=== PATIENT | male | born 1970 | race Two or more races ===

== ENCOUNTER 2016-11-09 13:53 | Emergency (ER) | payer MEDICARE, MEDICAID ==
[~2016-11-09] VITALS: Ht 180.3 cm; Wt 117.9 kg
[2016-11-09] MEDS ORDERED: SODIUM CHLORIDE 0.9% 1,000 ML IV ONE ×2 (14:59)
[2016-11-09 15:47] LABS: Basophils # (auto) 0 uL; Basophils % (auto) 0.4 % (0.0-2.0); CONDITION AutoValidated; Eosinophils # (auto) 0.4 uL; Eosinophils % (auto) 4.1 % (0.0-7.0); Hematocrit 40.5 % (41.0-53.0); Lymphocytes # (auto) 2.5 uL; Lymphocytes % (auto) 27.5 % (10.0-50.0); Mean Corpuscular Hemoglobin 30.3 pg (28.0-32.0); Mean Corpuscular Hgb Conc. 34.5 g/dL (32.0-36.0); Mean Corpuscular Volume 87.8 fL (80.0-100.0); Mean Platelet Volume 6.3 fL (7.4-10.4); Monocytes # (auto) 0.5 uL; Monocytes % (auto) 5.7 % (0.0-12.0); Neutrophils # (auto) 5.7 uL; Neutrophils % (auto) 62.3 % (37.0-80.0); Platelet Count (auto) 519 10^3/uL (140-450); Red Cell Distribution Width 13.3 % (11.6-16.0); White Blood Cell 9.1 10^3/uL (4.4-10.8)
[2016-11-09 16:02] LABS: Albumin 3.3 g/dL (3.4-5.0); Alkaline Phosphatase 138 U/L (45-117); Anion Gap 8 (5-15); Aspartate Aminotransferase 22 U/L (15-37); BUN/Creatinine Ratio 18.9; Bilirubin, Total 0.3 mg/dL (0.2-1.0); Blood Urea Nitrogen 17 mg/dL (7-18); Calcium 8.4 mg/dL (8.5-10.1); Carbon Dioxide 25 mmol/L (21-32); Chloride 104 mmol/L (98-107); GFR African American 117 mL/min; GFR Non-African American 97 mL/min; Glucose 197 mg/dL (74-106); Magnesium 2.1 mg/dL (1.6-2.6); Potassium 4.2 mmol/L (3.5-5.1); Sodium 137 mmol/L (136-145)
[2016-11-09 16:26] LABS: Urine Bilirubin Negative (Negative); Urine Blood Negative /uL (Negative); Urine Color Yellow (Yellow); Urine Glucose Normal (Normal); Urine Ketone Negative (Negative); Urine Mucus FEW (None Seen); Urine Nitrite Negative (Negative); Urine RBC 1 /hpf (0 - 3); Urine Squamous Epithelial Cell FEW /hpf (<5); Urine Urobilinogen Normal (Negative)
[2016-11-09 18:11] VITALS: BP 214/132
== END 2016-11-09 18:24 | disposition left against medical advice (07) ==
LOC: EDAGE 13:53 → EDUNIT# 13:53 → ER 14:00
DX: G45.9 Transient cerebral ischemic attack, unspecified (principal); E11.9 Type 2 diabetes mellitus without complications; I10 Essential (primary) hypertension; F17.210 Nicotine dependence, cigarettes, uncomplicated; Z53.29 Procedure and treatment not carried out because of patient's decision for other reasons
CPT/HCPCS: 36415; 70450; 71010; 80053; 80307; 80320; 81001; 83735; 84484; 85025; 93005; 96360; 99285; J7030

== ENCOUNTER → 2017-08-25 | Outpatient (CLI) | payer MEDICARE, MEDICAID ==
[2017-08-25 14:25] VITALS: BP 145/83
[2017-08-25 15:00] VITALS: BP 144/80
[2017-08-25 15:43] LABS: Albumin 3.7 g/dL (3.4-5.0); BUN/Creatinine Ratio 13.3; Calcium 8.7 mg/dL (8.5-10.1); Magnesium 1.9 mg/dL (1.6-2.6)
[2017-08-25 15:46] LABS: Bilirubin, Total 0.6 mg/dL (0.2-1.0); Total Protein 7.9 g/dL (6.4-8.2)
[2017-08-25 15:50] LABS: Basophils # (auto) 0.1 uL; Basophils % (auto) 0.5 % (0.0-2.0); Eosinophils # (auto) 0.3 uL; Monocytes # (auto) 0.6 uL; Red Cell Distribution Width 13.2 % (11.8-14.3)
[2017-08-25 15:56] LABS: Eosinophils % (auto) 3.2 % (0.0-7.0); Lymphocytes # (auto) 3.2 uL; Lymphocytes % (auto) 29.8 % (10.0-50.0); Mean Corpuscular Hemoglobin 30.3 pg (28.0-32.0); Mean Corpuscular Hgb Conc. 35.2 g/dL (32.0-36.0); Mean Corpuscular Volume 85.9 fL (80.0-100.0); Monocytes % (auto) 5.5 % (0.0-12.0); Neutrophils # (auto) 6.6 uL; Nucleated Red Blood Cells % 0.7 %; Platelet Count (auto) 300 10^3/uL (140-450); Red Blood Cells 5.94 10^6/uL (4.5-5.90); White Blood Cell 10.8 10^3/uL (4.4-10.8)
[2017-08-25 16:06] LABS: INR 0.97 (0.9-1.15); Partial Thromboplastin Time 25.9 sec (22.64-33.71); Prothrombin Time 10.6 sec (9.37-12.3)
== END | disposition home or self-care (01) ==
LOC: CHF HDHVI 14:30
PROVIDERS: ATTEND Internal Medicine Cardiovascular Disease
DX: E11.40 Type 2 diabetes mellitus with diabetic neuropathy, unspecified (principal); I10 Essential (primary) hypertension; R79.1 Abnormal coagulation profile; D64.9 Anemia, unspecified; R79.89 Other specified abnormal findings of blood chemistry
CPT/HCPCS: 36415; 80053; 82306; 83036; 83735; 85025; 85610; 85730; G0463

== ENCOUNTER → 2017-09-05 | Outpatient (CLI) | payer MEDICARE, MEDICAID | END | disposition home or self-care (01) | LOC: Rad HDHVI 14:35 | PROVIDERS: ATTEND Internal Medicine Cardiovascular Disease | DX: I10 Essential (primary) hypertension (principal); E11.40 Type 2 diabetes mellitus with diabetic neuropathy, unspecified; F17.200 Nicotine dependence, unspecified, uncomplicated | CPT/HCPCS: 93306 ==

== ENCOUNTER → 2018-08-17 | Outpatient (CLI) | payer MEDICARE, MEDICAID | END | disposition home or self-care (01) | LOC: Rad HDHVI 12:51 | PROVIDERS: ATTEND Internal Medicine Cardiovascular Disease | DX: R07.89 Other chest pain (principal); I10 Essential (primary) hypertension | CPT/HCPCS: 93306 ==

== ENCOUNTER → 2018-09-09 | Outpatient (CLI) | payer MEDICARE, MEDICAID ==
[~2018-09-09] VITALS: Ht 175.3 cm; Wt 112.0 kg
[~2018-09-09] MED LIST: ADENOSINE 90 MG/30 ML INJ IV ONE; ADENOSINE 94 MG in GIVE UN-DILUTED 0 ML IV ONE
[2018-09-09 12:09] LABS: Urine Blood Negative /uL (Negative); Urine Specific Gravity 1.038 (1.001-1.035)
[2018-09-09 12:13] LABS: Basophils # (auto) 0.1 uL; Basophils % (auto) 0.6 % (0.0-2.0); Eosinophils # (auto) 0.3 uL; Eosinophils % (auto) 3.7 % (0.0-7.0); Hematocrit 50.4 % (41.0-53.0); Hemoglobin 16.7 g/dL (13.5-17.5); Lymphocytes # (auto) 1.9 uL; Lymphocytes % (auto) 21.3 % (10.0-50.0); Mean Corpuscular Hemoglobin 30.1 pg (28.0-32.0); Mean Corpuscular Hgb Conc. 33.1 g/dL (32.0-36.0); Mean Corpuscular Volume 90.7 fL (80.0-100.0); Monocytes # (auto) 0.6 uL; Monocytes % (auto) 7.3 % (0.0-12.0); Neutrophils # (auto) 5.9 uL; Neutrophils % (auto) 67.1 % (37.0-80.0); Nucleated Red Blood Cells % 0.4 %; Platelet Count (auto) 272 10^3/uL (140-450); Red Blood Cells 5.56 10^6/uL (4.5-5.90); Red Cell Distribution Width 13.2 % (11.8-14.3); White Blood Cell 8.8 10^3/uL (4.4-10.8)
[2018-09-09 12:44] LABS: Calcium 9.1 mg/dL (8.5-10.1)
[2018-09-09 12:50] LABS: BUN/Creatinine Ratio 16.9; Bilirubin, Total 0.6 mg/dL (0.2-1.0)
[2018-09-09 12:53] LABS: Free T4 (Free Thyroxine) 1.33 ng/dL (0.89-1.76); Prostate Specific Antigen 0.28 ng/mL (0.0-4.0)
[2018-09-09 13:54] LABS: Potassium 4.2 mmol/L (3.5-5.1)
== END | disposition home or self-care (01) ==
LOC: Rad HDHVI 08:15
PROVIDERS: ATTEND Internal Medicine Cardiovascular Disease
DX: E11.65 Type 2 diabetes mellitus with hyperglycemia (principal); E03.9 Hypothyroidism, unspecified; E55.9 Vitamin D deficiency, unspecified; C61 Malignant neoplasm of prostate; D51.9 Vitamin B12 deficiency anemia, unspecified; N39.0 Urinary tract infection, site not specified; R82.79 Other abnormal findings on microbiological examination of urine; E78.5 Hyperlipidemia, unspecified; E11.40 Type 2 diabetes mellitus with diabetic neuropathy, unspecified; E78.00 Pure hypercholesterolemia, unspecified; I10 Essential (primary) hypertension
CPT/HCPCS: 36415; 78452; 80053; 80061; 81003; 82306; 82607; 83036; 84153; 84403; 84439; 84443; 85025; 93005; 96374; 96375; A9500; J0153

== ENCOUNTER → 2019-07-30 | Outpatient (CLI) | payer MEDICARE, MEDICAID ==
[2019-07-30 11:48] LABS: Basophils # (auto) 0.1 10 ^3/uL (0-0.2); Basophils % (auto) 0.7 % (0.0-2.0); Eosinophils # (auto) 0.2 10 ^3/uL (0-0.8); Eosinophils % (auto) 2.9 % (0.0-7.0); Hemoglobin 16.3 g/dL (13.5-17.5); Lymphocytes % (auto) 26.8 % (10.0-50.0); Mean Corpuscular Hemoglobin 31.1 pg (28.0-32.0); Mean Corpuscular Hgb Conc. 34.7 g/dL (32.0-36.0); Mean Corpuscular Volume 89.7 fL (80.0-100.0); Monocytes # (auto) 0.5 10 ^3/uL (0-1.3); Monocytes % (auto) 6.9 % (0.0-12.0); Neutrophils # (auto) 4.7 10 ^3/uL (1.6-8.6); Neutrophils % (auto) 62.7 % (37.0-80.0); Nucleated Red Blood Cells % 0.1 %; Platelet Count (auto) 255 10^3/uL (140-450); Red Blood Cells 5.24 10^6/uL (4.5-5.90); Red Cell Distribution Width 13.2 % (11.8-14.3); White Blood Cell 7.5 10^3/uL (4.4-10.8)
[2019-07-30 11:51] LABS: Urine Blood Negative /uL (Negative); Urine Specific Gravity 1.035 (1.001-1.035)
[2019-07-30 12:02] LABS: Albumin 3.7 g/dL (3.4-5.0); Potassium 4.8 mmol/L (3.5-5.1)
[2019-07-30 12:07] LABS: BUN/Creatinine Ratio 22.2; Bilirubin, Total 0.6 mg/dL (0.2-1.0); Free T4 (Free Thyroxine) 1.07 ng/dL (0.89-1.76); Prostate Specific Antigen 0.85 ng/mL (0.0-4.0)
== END | disposition home or self-care (01) ==
LOC: LAB 08:02
PROVIDERS: ATTEND Internal Medicine Cardiovascular Disease
DX: C61 Malignant neoplasm of prostate (principal); E03.9 Hypothyroidism, unspecified; K90.9 Intestinal malabsorption, unspecified; E29.1 Testicular hypofunction; N39.0 Urinary tract infection, site not specified; D51.9 Vitamin B12 deficiency anemia, unspecified; Z79.899 Other long term (current) drug therapy
CPT/HCPCS: 36415; 80053; 80061; 81003; 82306; 82607; 83036; 84153; 84403; 84439; 84443; 85025

== ENCOUNTER → 2019-09-06 | Emergency (ER) | payer MEDICARE, MEDICAID ==
[~2019-09-06] VITALS: Ht 175.3 cm; Wt 117.0 kg
[2019-09-06 21:22] LABS: Basophils # (auto) 0.1 10 ^3/uL (0-0.2); Basophils % (auto) 0.7 % (0.0-2.0); Eosinophils # (auto) 0.4 10 ^3/uL (0-0.8); Eosinophils % (auto) 3.5 % (0.0-7.0); Hematocrit 49.9 % (41.0-53.0); Hemoglobin 17.3 g/dL (13.5-17.5); Lymphocytes # (auto) 3.3 10 ^3/uL (0.4-5.4); Lymphocytes % (auto) 32.9 % (10.0-50.0); Mean Corpuscular Hemoglobin 31.1 pg (28.0-32.0); Mean Corpuscular Hgb Conc. 34.7 g/dL (32.0-36.0); Mean Corpuscular Volume 89.4 fL (80.0-100.0); Monocytes # (auto) 0.9 10 ^3/uL (0-1.3); Monocytes % (auto) 8.5 % (0.0-12.0); Neutrophils # (auto) 5.5 10 ^3/uL (1.6-8.6); Neutrophils % (auto) 54.4 % (37.0-80.0); Nucleated Red Blood Cells % 0.1 %; Platelet Count (auto) 262 10^3/uL (140-450); Red Blood Cells 5.58 10^6/uL (4.5-5.90); Red Cell Distribution Width 13.3 % (11.8-14.3); White Blood Cell 10.2 10^3/uL (4.4-10.8)
[2019-09-06 21:30] LABS: Alanine Aminotransferase 29 U/L (16-61); Albumin 4.1 g/dL (3.4-5.0); Anion Gap 8 (5-15); Aspartate Aminotransferase 17 U/L (15-37); BUN/Creatinine Ratio 18.8; Blood Urea Nitrogen 16 mg/dL (7-18); Calcium 9.3 mg/dL (8.5-10.1); Carbon Dioxide 24 mmol/L (21-32); Chloride 104 mmol/L (98-107); GFR African American 124 mL/min; GFR Non-African American 102 mL/min; Glucose 193 mg/dL (74-106); Magnesium 2.3 mg/dL (1.6-2.6); Potassium 4.4 mmol/L (3.5-5.1); Sodium 136 mmol/L (136-145)
[2019-09-06 21:37] LABS: Alkaline Phosphatase 130 U/L (45-117); Bilirubin, Total 0.5 mg/dL (0.2-1.0); Total Protein 7.9 g/dL (6.4-8.2)
[2019-09-06 22:00] VITALS: BP 142/96
== END | disposition home or self-care (01) ==
LOC: ER 20:28
DX: J11.1 Influenza due to unidentified influenza virus with other respiratory manifestations (principal); E11.9 Type 2 diabetes mellitus without complications; E78.5 Hyperlipidemia, unspecified; I10 Essential (primary) hypertension; F17.210 Nicotine dependence, cigarettes, uncomplicated
CPT/HCPCS: 36415; 71045; 80053; 82728; 83735; 83880; 84443; 84484; 85025; 85379; 85610; 85730; 87070; 87804; 87880; 93005

== ENCOUNTER → 2019-09-20 | Outpatient (CLI) | payer MEDICARE, MEDICAID ==
[~2019-09-20] MED LIST changes: -ADENOSINE 90 MG/30 ML INJ IV ONE; -ADENOSINE 94 MG in GIVE UN-DILUTED 0 ML IV ONE; +CHOL20007 PO; +DAPA1TAB4 PO; +INSU1.2I SC; +LISI-711 PO; +METF-370 PO; +NIC21P TOP; +PAR20T PO; +PREG50CA PO; +PROP20TA73 PO
[2019-09-20 09:10] VITALS: BP 120/80
--- NOTE | 2019-09-20 09:10 | NUR ---
Patient in for scheduled preop appt after lab draw and cxray.
[2019-09-20 09:35] VITALS: BP 125/78
--- NOTE | 2019-09-20 09:35 | NUR ---
Pre-Op Discharge Summary: See e-MAR for any medications given for this visit. Pre-op orders received and carried out per MD of EKG, LABS and chest xrays. EKG faxed to [facility] and patient has instructions for tele health appt to completed preop admission.
[2019-09-20 12:29] LABS: BUN/Creatinine Ratio 14.3; Calcium 8.8 mg/dL (8.5-10.1); Potassium 4.4 mmol/L (3.5-5.1)
[2019-09-20 12:38] LABS: Basophils # (auto) 0.1 10 ^3/uL (0-0.2); Basophils % (auto) 0.7 % (0.0-2.0); Eosinophils # (auto) 0.3 10 ^3/uL (0-0.8); Eosinophils % (auto) 2.8 % (0.0-7.0); Hematocrit 50.4 % (41.0-53.0); Hemoglobin 17.2 g/dL (13.5-17.5); Lymphocytes % (auto) 20.9 % (10.0-50.0); Mean Corpuscular Hemoglobin 30.7 pg (28.0-32.0); Mean Corpuscular Hgb Conc. 34.1 g/dL (32.0-36.0); Monocytes # (auto) 0.6 10 ^3/uL (0-1.3); Monocytes % (auto) 6.6 % (0.0-12.0); Neutrophils # (auto) 6.7 10 ^3/uL (1.6-8.6); Nucleated Red Blood Cells % 0.2 %; Platelet Count (auto) 264 10^3/uL (140-450); Red Cell Distribution Width 13.5 % (11.8-14.3); White Blood Cell 9.7 10^3/uL (4.4-10.8)
[2019-09-20 12:39] LABS: INR 0.98 (0.9-1.15); Partial Thromboplastin Time 27.6 sec (23.64-32.05)
== END | disposition home or self-care (01) ==
LOC: Rad HDHVI 08:46
PROVIDERS: ATTEND Internal Medicine Cardiovascular Disease
DX: Z01.812 Encounter for preprocedural laboratory examination (principal); R06.02 Shortness of breath; I20.9 Angina pectoris, unspecified; E11.9 Type 2 diabetes mellitus without complications; M47.814 Spondylosis without myelopathy or radiculopathy, thoracic region
CPT/HCPCS: 36415; 71046; 80048; 85025; 85610; 85730; 93005; G0463

== ENCOUNTER 2019-09-23 07:46 | Day surgery (SDC) | payer BC, MEDICARE, MEDICAID ==
[~2019-09-23] VITALS: Ht 175.3 cm; Wt 113.9 kg
[2019-09-23] MEDS ORDERED: LIDOCAINE 2%HCL (LOCAL ANESTH.) INJ 20ML MDV ONE (08:09)
[2019-09-23] MEDS ORDERED: IOHEXOL 350 MG/ML 100ML IJ ONE ×2 (08:09→09:35)
[2019-09-23] MEDS ORDERED: ANGIOMAX 250 MG VIAL IV ONE (08:24)
[2019-09-23] MEDS ORDERED: MIDAZOLAM HCL 1MG/1ML-2 ML VIAL ONE (08:24)
[2019-09-23] MEDS ORDERED: fentaNYL CITRATE 100 MCG/2 ML VL ONE (08:24)
[2019-09-23] MEDS ORDERED: SODIUM CHL 0.9% 0 ML ONE (08:25)
[2019-09-23] MEDS ORDERED: SODIUM CHL 0.9% 500 ML IV ONE (11:00)
[2019-09-23] MEDS ORDERED: ACETAMINOPHEN 500 MG TAB PO PRN (11:00)
[2019-09-23] MEDS ORDERED: ONDANSETRON HCL 4 MG/2 ML VIAL IV PRN (11:00)
[2019-09-23] MEDS ORDERED: HYDROcodone-ACET 5/325MG TAB PO PRN (11:00)
== END 2019-09-23 12:49 | disposition home or self-care (01) ==
LOC: CATH 07:46
PROVIDERS: ATTEND Internal Medicine Cardiovascular Disease
DX: R07.9 Chest pain, unspecified (principal); I25.10 Atherosclerotic heart disease of native coronary artery without angina pectoris; Z98.890 Other specified postprocedural states
CPT/HCPCS: 93458; C1760; C1894; J1644; J2250; J3010; J7030; Q9967; 99152

== ENCOUNTER → 2019-12-07 | Outpatient (CLI) | payer MEDICARE, BC, MEDICAID ==
[2019-12-07 12:10] LABS: Basophils # (auto) 0.1 10 ^3/uL (0-0.2); Eosinophils # (auto) 0.2 10 ^3/uL (0-0.8); Hemoglobin 18.3 g/dL (13.5-17.5); Lymphocytes # (auto) 1.8 10 ^3/uL (0.4-5.4); White Blood Cell 8.1 10^3/uL (4.4-10.8)
[2019-12-07 12:13] LABS: Basophils % (auto) 0.8 % (0.0-2.0); Eosinophils % (auto) 2.9 % (0.0-7.0); Hematocrit 54.4 % (41.0-53.0); Lymphocytes % (auto) 22.1 % (10.0-50.0); Mean Corpuscular Hgb Conc. 33.7 g/dL (32.0-36.0); Mean Corpuscular Volume 89.1 fL (80.0-100.0); Monocytes # (auto) 0.5 10 ^3/uL (0-1.3); Monocytes % (auto) 6.6 % (0.0-12.0); Neutrophils # (auto) 5.5 10 ^3/uL (1.6-8.6); Neutrophils % (auto) 67.6 % (37.0-80.0); Platelet Count (auto) 260 10^3/uL (140-450); Red Blood Cells 6.11 10^6/uL (4.5-5.90); Urine Blood Negative /uL (Negative); Urine Specific Gravity 1.042 (1.001-1.035)
[2019-12-07 12:21] LABS: Albumin 4.1 g/dL (3.4-5.0); Potassium 4.2 mmol/L (3.5-5.1)
[2019-12-07 12:23] LABS: INR 1.01 (0.9-1.15); Partial Thromboplastin Time 27.9 sec (23.64-32.05)
[2019-12-07 12:25] LABS: BUN/Creatinine Ratio 16.3; Bilirubin, Total 0.5 mg/dL (0.2-1.0); Total Protein 8.2 g/dL (6.4-8.2)
== END | disposition home or self-care (01) ==
LOC: Rad HDHVI 10:28
PROVIDERS: ATTEND Internal Medicine Cardiovascular Disease
DX: Z01.812 Encounter for preprocedural laboratory examination (principal); M75.42 Impingement syndrome of left shoulder
CPT/HCPCS: 36415; 71046; 80053; 81003; 85025; 85610; 85730

== ENCOUNTER → 2020-09-28 | Outpatient (CLI) | payer MEDICARE, BC ==
[2020-09-28 10:30] LABS: Albumin 3.7 g/dL (3.4-5.0); Calcium 9.1 mg/dL (8.5-10.1); Potassium 4.6 mmol/L (3.5-5.1)
[2020-09-28 10:31] LABS: Basophils # (auto) 0.1 10 ^3/uL (0-0.2); Basophils % (auto) 0.7 % (0.0-2.0); Eosinophils # (auto) 0.2 10 ^3/uL (0-0.8); Eosinophils % (auto) 1.9 % (0.0-7.0); Hematocrit 50.3 % (41.0-53.0); Hemoglobin 17.3 g/dL (13.5-17.5); Lymphocytes # (auto) 2.4 10 ^3/uL (0.4-5.4); Lymphocytes % (auto) 26.2 % (10.0-50.0); Mean Corpuscular Hemoglobin 31.3 pg (28.0-32.0); Mean Corpuscular Hgb Conc. 34.3 g/dL (32.0-36.0); Mean Corpuscular Volume 91.3 fL (80.0-100.0); Monocytes # (auto) 0.6 10 ^3/uL (0-1.3); Monocytes % (auto) 6.9 % (0.0-12.0); Neutrophils % (auto) 64.3 % (37.0-80.0); Nucleated Red Blood Cells % 0.2 %; Platelet Count (auto) 255 10^3/uL (140-450); Red Blood Cells 5.52 10^6/uL (4.5-5.90); Red Cell Distribution Width 13.5 % (11.8-14.3); White Blood Cell 9.3 10^3/uL (4.4-10.8)
[2020-09-28 10:36] LABS: BUN/Creatinine Ratio 21.8; Bilirubin, Total 0.6 mg/dL (0.2-1.0); Total Protein 7.6 g/dL (6.4-8.2)
== END | disposition home or self-care (01) ==
LOC: LAB 09:35
PROVIDERS: ATTEND Physician Assistant
DX: E11.22 Type 2 diabetes mellitus with diabetic chronic kidney disease (principal); N18.9 Chronic kidney disease, unspecified; E11.39 Type 2 diabetes mellitus with other diabetic ophthalmic complication; E66.01 Morbid (severe) obesity due to excess calories; R35.1 Nocturia
CPT/HCPCS: 36415; 80053; 80061; 82043; 83036; 84153; 85025

== ENCOUNTER 2021-08-23 13:09 | Emergency (ER) | payer BC, MEDICARE ==
[~2021-08-23] VITALS: Ht 175.3 cm; Wt 117.9 kg
[2021-08-23 14:11] LABS: Urine Bacteria NONE SEEN /hpf (None Seen); Urine Blood TRACE /uL (Negative); Urine Specific Gravity 1.025 (1.001-1.035); Urine WBC 1 /hpf (0 - 3)
[2021-08-23 14:23] LABS: Eosinophils # (auto) 0.2 10 ^3/uL (0-0.8); White Blood Cell 11.6 10^3/uL (4.4-10.8)
[2021-08-23 14:26] LABS: Basophils # (auto) 0.1 10 ^3/uL (0-0.2); Basophils % (auto) 1.1 % (0.0-2.0); Hematocrit 49.8 % (41.0-53.0); Hemoglobin 17.7 g/dL (13.5-17.5); Mean Corpuscular Hgb Conc. 35.5 g/dL (32.0-36.0); Mean Corpuscular Volume 87.5 fL (80.0-100.0); Monocytes # (auto) 0.7 10 ^3/uL (0-1.3); Monocytes % (auto) 6.1 % (0.0-12.0); Neutrophils # (auto) 7.5 10 ^3/uL (1.6-8.6); Neutrophils % (auto) 64.8 % (37.0-80.0); Nucleated Red Blood Cells % 1.9 %; Red Blood Cells 5.69 10^6/uL (4.5-5.90); Red Cell Distribution Width 13.5 % (11.8-14.3)
[2021-08-23 15:00] LABS: Calcium 8.9 mg/dL (8.5-10.1)
[2021-08-23 15:03] LABS: BUN/Creatinine Ratio 17.4
[2021-08-23 15:06] LABS: Bilirubin, Total 0.7 mg/dL (0.2-1.0); Total Protein 7.3 g/dL (6.4-8.2)
[2021-08-23] MEDS ORDERED: SODIUM CHLORIDE 0.9% 1,000 ML IV ONE ×2 (15:15)
[2021-08-23] MEDS ORDERED: KETOROLAC TROMETH 30 MG/ML 1ML VIAL IV ONE (16:00)
[2021-08-23] MEDS ORDERED: IBU600T PO (16:12)
[2021-08-23] MEDS ORDERED: LEVO-28 PO (16:12)
[2021-08-23] MEDS ORDERED: cefTRIAXone 1GM/50ML D5W 50 ML IV ONE (16:15)
[2021-08-23 16:18] VITALS: BP 108/60
== END 2021-08-23 16:20 | disposition home or self-care (01) ==
LOC: ER 13:09
DX: E86.0 Dehydration (principal); N20.0 Calculus of kidney; E11.65 Type 2 diabetes mellitus with hyperglycemia; I10 Essential (primary) hypertension; E78.5 Hyperlipidemia, unspecified; F17.210 Nicotine dependence, cigarettes, uncomplicated; Z79.899 Other long term (current) drug therapy
CPT/HCPCS: 36415; 74176; 80053; 81001; 85025

== ENCOUNTER → 2022-06-17 | Outpatient (CLI) | payer MEDICARE, BC ==
[~2022-06-17] MED LIST changes: +IBU600T PO; +LEVO-28 PO
[2022-06-17 10:15] LABS: Barbiturate Scree,Urine NEGATIVE (NEGATIVE); Cannabinoid Screen, Urine NEGATIVE (NEGATIVE)
[2022-06-17 10:20] LABS: Alcohol, Urine < 3.0 mg/dL (0-10); Amphetamine Screen, Urine NEGATIVE (NEGATIVE); Benzodiazephine Screen, Urine NEGATIVE (NEGATIVE); Cocaine Screen, Urine NEGATIVE (NEGATIVE); Opiate Scree,Urine NEGATIVE (NEGATIVE); Phencyclidine Screen, Urine NEGATIVE (NEGATIVE)
== END | disposition home or self-care (01) ==
LOC: LAB 08:50
PROVIDERS: ATTEND Internal Medicine
DX: M96.1 Postlaminectomy syndrome, not elsewhere classified (principal); G89.4 Chronic pain syndrome
CPT/HCPCS: 80307

== ENCOUNTER → 2022-08-26 | Outpatient (CLI) | payer BC, MEDICARE ==
[2022-08-26 11:57] LABS: Basophils # (auto) 0.1 10 ^3/uL (0-0.2); Basophils % (auto) 0.8 % (0.0-2.0); Eosinophils # (auto) 0.2 10 ^3/uL (0-0.8); Eosinophils % (auto) 2.2 % (0.0-7.0); Hematocrit 45.3 % (41.0-53.0); Hemoglobin 16.3 g/dL (13.5-17.5); Lymphocytes # (auto) 2.9 10 ^3/uL (0.4-5.4); Lymphocytes % (auto) 31.8 % (10.0-50.0); Mean Corpuscular Hemoglobin 31.4 pg (28.0-32.0); Mean Corpuscular Hgb Conc. 35.9 g/dL (32.0-36.0); Mean Corpuscular Volume 87.6 fL (80.0-100.0); Monocytes # (auto) 0.6 10 ^3/uL (0-1.3); Monocytes % (auto) 7.1 % (0.0-12.0); Neutrophils # (auto) 5.3 10 ^3/uL (1.6-8.6); Neutrophils % (auto) 58.1 % (37.0-80.0); Nucleated Red Blood Cells % 0.2 %; Red Blood Cells 5.17 10^6/uL (4.5-5.90); Red Cell Distribution Width 14.1 % (11.8-14.3); White Blood Cell 9.1 10^3/uL (4.4-10.8)
[2022-08-26 12:24] LABS: Potassium 3.9 mmol/L (3.5-5.1)
[2022-08-26 12:33] LABS: Free T4 (Free Thyroxine) 0.96 ng/dL (0.89-1.76)
[2022-08-26 12:34] LABS: Albumin 3.6 g/dL (3.4-5.0); BUN/Creatinine Ratio 30.4 (10.0-20.0); Bilirubin, Total 0.8 mg/dL (0.2-1.0); Prostate Specific Antigen 0.29 ng/mL (0.0-4.0); Total Protein 7.1 g/dL (6.4-8.2)
== END | disposition home or self-care (01) ==
LOC: LAB 11:17
PROVIDERS: ATTEND Nurse Practitioner Family
DX: Z00.00 Encounter for general adult medical examination without abnormal findings (principal); E11.40 Type 2 diabetes mellitus with diabetic neuropathy, unspecified; R35.1 Nocturia; E66.01 Morbid (severe) obesity due to excess calories
CPT/HCPCS: 36415; 80053; 80061; 82043; 82306; 84153; 84439; 84443; 85025

== ENCOUNTER → 2022-09-27 | Outpatient (CLI) | payer BC, MEDICARE | END | disposition home or self-care (01) | LOC: LAB 15:13 | DX: Z00.00 Encounter for general adult medical examination without abnormal findings (principal); E11.40 Type 2 diabetes mellitus with diabetic neuropathy, unspecified; R35.1 Nocturia; E66.01 Morbid (severe) obesity due to excess calories | CPT/HCPCS: 82274 ==

== ENCOUNTER 2022-12-30 18:18 | Emergency (ER) | payer BC, MEDICARE, MEDICAID ==
[~2022-12-30] VITALS: Ht 177.8 cm; Wt 220.0 kg
[~2022-12-30 18:18] MED LIST changes: -LEVO-28 PO; +LEVO500T91 PO; +PROP1TAB53 PO; -PROP20TA73 PO
[2022-12-30] MEDS ORDERED: BUPIVACAINE 0.25% INJ 50ML VIAL IJ ONE (21:45)
[2022-12-30] MEDS ORDERED: MORPHINE SULFATE INJ 2 MG/ml SYRG IM ONE (21:45)
[2022-12-30] MEDS ORDERED: LIDOCAINE HCL (LOCAL ANESTH.) 0.5 % 50ML MDV IJ ONE (21:45)
[2022-12-30] MEDS ORDERED: BUPIVACAINE 0.25% INJ 50ML VIAL ID ONE (23:15)
[2022-12-30] MEDS ORDERED: LIDOCAINE 2%HCL (LOCAL ANESTH.) INJ 10ml MDV IJ ONE (23:30)
[2022-12-31] MEDS ORDERED: HYDR-4902 PO (00:34)
[2022-12-31 01:42] VITALS: BP 126/75; PULSE 81; RESP 19; TEMP 98; O2SAT 99
== END 2022-12-31 07:32 | disposition home or self-care (01) ==
LOC: EDBD 18:18 → EDUNIT# 18:18 → ER 18:18
DX: S52.522A Torus fracture of lower end of left radius, initial encounter for closed fracture (principal); S52.612A Displaced fracture of left ulna styloid process, initial encounter for closed fracture; S13.8XXA Sprain of joints and ligaments of other parts of neck, initial encounter; S09.8XXA Other specified injuries of head, initial encounter; I10 Essential (primary) hypertension; E11.9 Type 2 diabetes mellitus without complications; E78.5 Hyperlipidemia, unspecified; F17.210 Nicotine dependence, cigarettes, uncomplicated; Z79.1 Long term (current) use of non-steroidal anti-inflammatories (NSAID); Z79.4 Long term (current) use of insulin; Z79.84 Long term (current) use of oral hypoglycemic drugs; Z79.899 Other long term (current) drug therapy; W18.39XA Other fall on same level, initial encounter; Y93.51 Activity, roller skating (inline) and skateboarding; Y92.89 Other specified places as the place of occurrence of the external cause; Y99.8 Other external cause status
CPT/HCPCS: 25605; 70450; 72125; 73100; 96372; 99285; J2001; J2270; J3490

== ENCOUNTER 2023-01-15 08:03 | Day surgery (SDC) | payer BC, MEDICARE, MEDICAID ==
[2023-01-14 09:04] LABS: Basophils # (auto) 0.1 10 ^3/uL (0-0.2); Basophils % (auto) 0.7 % (0.0-2.0); Eosinophils # (auto) 0.1 10 ^3/uL (0-0.8); Eosinophils % (auto) 1.4 % (0.0-7.0); Hematocrit 49.7 % (41.0-53.0); Hemoglobin 17.3 g/dL (13.5-17.5); Lymphocytes # (auto) 2.5 10 ^3/uL (0.4-5.4); Lymphocytes % (auto) 24.4 % (10.0-50.0); Mean Corpuscular Hemoglobin 31.6 pg (28.0-32.0); Mean Corpuscular Hgb Conc. 34.9 g/dL (32.0-36.0); Mean Corpuscular Volume 90.4 fL (80.0-100.0); Monocytes # (auto) 0.5 10 ^3/uL (0-1.3); Monocytes % (auto) 4.5 % (0.0-12.0); Nucleated Red Blood Cells % 0.1 %; Red Cell Distribution Width 13.7 % (11.8-14.3); White Blood Cell 10.1 10^3/uL (4.4-10.8)
[2023-01-14 09:24] LABS: INR 1.05 (0.9-1.15); Partial Thromboplastin Time 30.7 SEC (24.5-34.5)
[2023-01-14 09:55] LABS: Potassium 4.1 mmol/L (3.5-5.1)
[2023-01-14 10:04] LABS: Albumin 3.8 g/dL (3.4-5.0); BUN/Creatinine Ratio 23.4 (10.0-20.0); Bilirubin, Total 0.5 mg/dL (0.2-1.0); Calcium 8.7 mg/dL (8.7-10.4); Total Protein 7.2 g/dL (6.4-8.2)
[2023-01-14 11:10] LABS: Urine Bacteria NONE SEEN /hpf (None Seen); Urine Blood Negative /uL (Negative); Urine Clarity Clear (Clear); Urine Color Yellow (Yellow); Urine Protein, UAD TRACE (Negative); Urine Specific Gravity 1.037 (1.001-1.035); Urine Urobilinogen Normal (Negative); Urine WBC 1 /hpf (0 - 3)
[~2023-01-15] VITALS: Ht 175.3 cm; Wt 100.2 kg
[~2023-01-15 08:03] MED LIST changes: +CLON-1003 PO; +HYDR-4902 PO; -INSU1.2I SC; -LEVO500T91 PO; -METF-370 PO; -PAR20T PO; +PARO30TA99 PO; +ROSU1TAB12 PO; +TIRZ12.5 SC
[2023-01-15] MEDS ORDERED: ceFAZolin 1GM/50ML 100 ML IV ONE (08:11)
[2023-01-15] MEDS ORDERED: DexAMETHasone SOD PHOS 10MG/1ML VIAL INJ ONE (08:23)
[2023-01-15] MEDS ORDERED: PROPOFOL 10 MG/ML 20 ML IV ONE (08:23)
[2023-01-15] MEDS ORDERED: MEPERIDINE HCL (25 MG/ML) 1ML VIAL ONE (08:23)
[2023-01-15] MEDS ORDERED: MIDAZOLAM HCL 2MG/2ML 2ml VIAL (1mg/ml) ONE (08:23)
[2023-01-15] MEDS ORDERED: fentaNYL CITRATE 100 MCG/2 ML VL ONE (08:23)
[2023-01-15] MEDS ORDERED: ONDANSETRON HCL 4 MG/2 ML VIAL ONE (08:23)
[2023-01-15] MEDS ORDERED: SODIUM CHLORIDE LOCK 10 ML ONE (08:23)
[2023-01-15 09:42] VITALS: RESP 13; TEMP 97.6; O2SAT 94
[2023-01-15] MEDS ORDERED: METOCLOPRAMIDE HCL 5MG/ml INJ 2ml VIAL IV PRN (10:00)
[2023-01-15] MEDS ORDERED: ACCU-CHEK COMFORT CURVE STRIP VI ONE (10:00)
[2023-01-15] MEDS ORDERED: HYDROmorphone HCL 2 MG/ML VL/or syr IV PRN (10:00)
[2023-01-15] MEDS: HYDROmorphone HCL 2 MG/ML VL/or syr IV PRN ×4 (10:04→10:58)
[2023-01-15] MEDS ORDERED: CEPH250C PO (10:10)
[2023-01-15] MEDS: MORPHINE SULFATE INJ 2 MG/ml SYRG IV PRN ×2 (10:13→10:44)
[2023-01-15 11:25] VITALS: BP 160/83; PULSE 97; RESP 18; O2SAT 95
== END 2023-01-15 11:32 | disposition home or self-care (01) ==
LOC: SUR 08:03
PROVIDERS: ATTEND Orthopaedic Surgery
DX: S52.592A Other fractures of lower end of left radius, initial encounter for closed fracture (principal); X58.XXXA Exposure to other specified factors, initial encounter; Y93.89 Activity, other specified; Y92.89 Other specified places as the place of occurrence of the external cause; Y99.8 Other external cause status; E11.9 Type 2 diabetes mellitus without complications
CPT/HCPCS: 25609; 36415; 73100; 76000; 80053; 81001; 82962; 85025; 85610; 85730; J0690; J1100; J1170; J2175; J2250; J2270; J2405; J2704; J3010

== ENCOUNTER → 2024-02-17 | Outpatient (CLI) | payer BC, MEDICAID ==
[~2024-02-17] MED LIST changes: +CEPH250C PO; +PARO-181 PO; -PARO30TA99 PO; -ROSU1TAB12 PO; +ROSU5TAB24 PO
[2024-02-17 10:57] LABS: Amphetamine Screen, Urine Neg (NEGATIVE); Barbiturate Scree,Urine Neg (NEGATIVE); Benzodiazephine Screen, Urine Neg (NEGATIVE)
[2024-02-17 10:58] LABS: Cannabinoid Screen, Urine Neg (NEGATIVE); Cocaine Screen, Urine Neg (NEGATIVE); Opiate Scree,Urine Pos (NEGATIVE); Phencyclidine Screen, Urine Neg (NEGATIVE)
[2024-02-17 11:07] LABS: Alanine Aminotransferase 24 U/L (7-40); Albumin 4.3 g/dL (3.2-4.8); Alkaline Phosphatase 90 U/L (46-116); Anion Gap 7 (5-15); Aspartate Aminotransferase 18 U/L (13-40); Bilirubin, Total 0.7 mg/dL (0.2-1.0); Blood Urea Nitrogen 14 mg/dL (9-23); Calcium 9.4 mg/dL (8.7-10.4); Carbon Dioxide 26 mmol/L (20-30); Chloride 104 mmol/L (98-107); Glucose 215 mg/dL (74-106); Potassium 4.2 mmol/L (3.5-5.1); Sodium 137 mmol/L (136-145); Total Protein 6.7 g/dL (5.7-8.2)
== END | disposition home or self-care (01) ==
LOC: LAB 09:44
PROVIDERS: ATTEND Internal Medicine
DX: G89.4 Chronic pain syndrome (principal)
CPT/HCPCS: 36415; 80053; 80307

== ENCOUNTER → 2024-08-16 | Outpatient (CLI) | payer BC ==
[2024-08-16 14:46] LABS: Urine Bacteria None Seen /hpf (None Seen)
[2024-08-16 15:00] LABS: Basophils # (auto) 0.1 10 ^3/uL (0-0.2); Basophils % (auto) 0.9 % (0.0-2.0); Eosinophils # (auto) 0.3 10 ^3/uL (0-0.8); Eosinophils % (auto) 3.7 % (0.0-7.0); Hematocrit 42.7 % (41.0-53.0); Hemoglobin 14.8 g/dL (13.5-17.5); Lymphocytes # (auto) 2.6 10 ^3/uL (0.4-5.4); Lymphocytes % (auto) 38.9 % (10.0-50.0); Mean Corpuscular Hemoglobin 31.2 pg (28.0-32.0); Mean Corpuscular Hgb Conc. 34.8 g/dL (32.0-36.0); Mean Corpuscular Volume 89.7 fL (80.0-100.0); Monocytes # (auto) 0.5 10 ^3/uL (0-1.3); Monocytes % (auto) 7.7 % (0.0-12.0); Neutrophils # (auto) 3.3 10 ^3/uL (1.6-8.6); Neutrophils % (auto) 48.8 % (37.0-80.0); Nucleated Red Blood Cells % 0.1 %; Platelet Count (auto) 231 10^3/uL (140-450); Red Blood Cells 4.76 10^6/uL (4.5-5.90); Red Cell Distribution Width 13.3 % (11.8-14.3); White Blood Cell 6.8 10^3/uL (4.4-10.8)
[2024-08-16 15:21] LABS: Urine Blood Negative /uL (Negative); Urine Budding Yeast OCCASIONAL /hpf (None Seen); Urine Clarity Clear (Clear); Urine Color Yellow (Yellow); Urine Protein, UAD Negative (Negative); Urine Specific Gravity 1.032 (1.001-1.035); Urine Squamous Epithelial Cell None Seen /hpf (<5); Urine Urobilinogen 2 mg/dL (Negative); Urine pH 6.5 (5.0-9.0)
[2024-08-16 15:45] LABS: Alanine Aminotransferase 27 U/L (7-40); Albumin 4.2 g/dL (3.2-4.8); Alkaline Phosphatase 83 U/L (46-116); Anion Gap 9 (5-15); Aspartate Aminotransferase 26 U/L (13-40); BUN/Creatinine Ratio 15.4 (10.0-20.0); Bilirubin, Total 0.7 mg/dL (0.2-1.0); Blood Urea Nitrogen 16 mg/dL (9-23); Calcium 9.7 mg/dL (8.7-10.4); Carbon Dioxide 29 mmol/L (20-31); Chloride 102 mmol/L (98-107); Cholesterol 104 mg/dL (< 200); Glucose 129 mg/dL (74-106); HDL Cholesterol 36 mg/dL (40-59); LDL Cholesterol 55 mg/dL (< 100); Potassium 3.8 mmol/L (3.5-5.1); Sodium 140 mmol/L (136-145); Total Protein 6.6 g/dL (5.7-8.2); Triglycerides 89 mg/dL (< 150)
[2024-08-16 16:06] LABS: Benzodiazephine Screen, Urine Neg (NEGATIVE); Creatinine, Urine 74.94 mg/dL (30.0-125.0)
[2024-08-16 16:07] LABS: Amphetamine Screen, Urine Neg (NEGATIVE); Barbiturate Scree,Urine Neg (NEGATIVE); Cannabinoid Screen, Urine Neg (NEGATIVE); Cocaine Screen, Urine Neg (NEGATIVE); Opiate Scree,Urine Pos (NEGATIVE); Phencyclidine Screen, Urine Neg (NEGATIVE)
[2024-08-16 16:12] LABS: Micro Albumin < 3.0 mg/L (<30.0)
== END | disposition home or self-care (01) ==
LOC: LAB 14:09
PROVIDERS: ATTEND Nurse Practitioner Family
DX: E11.22 Type 2 diabetes mellitus with diabetic chronic kidney disease (principal); N18.9 Chronic kidney disease, unspecified; R35.1 Nocturia; R79.89 Other specified abnormal findings of blood chemistry; Z00.01 Encounter for general adult medical examination with abnormal findings
CPT/HCPCS: 36415; 80053; 80061; 80307; 81001; 82043; 82306; 82570; 83036; 84153; 84443; 85025

== ENCOUNTER → 2025-05-12 | Outpatient (CLI) | payer BC ==
[2025-05-12 13:10] LABS: Alanine Aminotransferase 27 U/L (7-40); Albumin 4.3 g/dL (3.2-4.8); Alkaline Phosphatase 77 U/L (46-116); Anion Gap 7 (5-15); BUN/Creatinine Ratio 15.5 (10.0-20.0); Blood Urea Nitrogen 15 mg/dL (9-23); Calcium 9.3 mg/dL (8.7-10.4); Carbon Dioxide 27 mmol/L (20-31); Chloride 105 mmol/L (98-107); Sodium 139 mmol/L (136-145); Total Protein 7.2 g/dL (5.7-8.2)
[2025-05-12 13:11] LABS: Bilirubin, Total 0.8 mg/dL (0.2-1.0)
[2025-05-12 13:12] LABS: Potassium 5.4 mmol/L (3.5-5.1)
[2025-05-12 13:13] LABS: Glucose 110 mg/dL (74-106)
[2025-05-12 13:56] LABS: Benzodiazephine Screen, Urine Neg (NEGATIVE)
[2025-05-12 13:57] LABS: Amphetamine Screen, Urine Neg (NEGATIVE); Barbiturate Scree,Urine Neg (NEGATIVE); Cannabinoid Screen, Urine Neg (NEGATIVE); Cocaine Screen, Urine Neg (NEGATIVE); Opiate Scree,Urine Pos (NEGATIVE); Phencyclidine Screen, Urine Neg (NEGATIVE)
== END | disposition home or self-care (01) ==
LOC: LAB 12:22
PROVIDERS: ATTEND Internal Medicine
DX: M51.9 Unspecified thoracic, thoracolumbar and lumbosacral intervertebral disc disorder (principal); G89.4 Chronic pain syndrome
CPT/HCPCS: 36415; 80053; 80307